=== PATIENT | female | born 1965 | race Two or more races ===

== ENCOUNTER 2023-10-23 10:41 | Emergency (ER) | payer BC ==
[~2023-10-23] VITALS: Ht 152.4 cm; Wt 77.1 kg
[2023-10-23] MEDS ORDERED: MEPERIDINE HCL/PF 50 MG/ML VIAL IM STA (11:48)
[2023-10-23] MEDS ORDERED: PROMETHAZINE HCL 25 MG/ML AMPUL IM STA (11:49)
[2023-10-23] MEDS ORDERED: CIPROFLOXACIN IN 5 % DEXTROSE 400 MG/200 ML PIGGYBAG IV STA (11:49)
[2023-10-23] MEDS ORDERED: METRONIDAZOLE/SODIUM CHLORIDE 500 MG/100 ML PIGGYBACK IV STA (11:50)
[2023-10-23 12:13] LABS: HEMATOCRIT 38.3 % (36.0-45.00); HEMOGLOBIN 13.2 g/dL (12.0-15.00); MEAN CELL VOLUME 82.7 fL (80.00-100.00); MEAN CORPUSCULAR HEMOGLOBIN 28.4 pg (27.00-32.0); MEAN CORPUSCULAR HGB CONC 34.3 g/dl (32.0-36.0); PLATELET COUNT 333 K/uL (150-450); RED BLOOD COUNT 4.64 M/uL (4.00-6.00); RED CELL DISTRIBUTION WIDTH 14.9 % (11.5-14.5)
[2023-10-23 12:38] LABS: CALCIUM 9.5 mg/dL (8.5-10.1); CREATININE SERUM 0.74 mg/dL (0.55-1.02); GFR 80.33; POTASSIUM 3.94 mEq/L (3.5-5.1)
[2023-10-23 13:33] LABS: URINE APPEARANCE Clear; URINE BILIRRUBIN Negative (NEGATIVE); URINE BLOOD Small; URINE COLOR Yellow; URINE GLUCOSE Negative (NEGATIVE); URINE LEUKOCYTE Negative; URINE NITRATE Negative; URINE PROTEIN Negative (NEGATIVE); URINE UROBILINOGEN 0.2 E.U./dl
[2023-10-23 13:36] LABS: URINE BACTERIA 166.2 uL (0.0-1933); URINE EPITHELIAL CELLS 21.9 uL (0.0-38.8)
[2023-10-23 13:38] LABS: URINE WBC 1.3 uL (0.0-23.2)
== END 2023-10-23 17:35 | disposition home or self-care (01) ==
LOC: ER 10:42
PROVIDERS: General Practice
DX: K57.30 Diverticulosis of large intestine without perforation or abscess without bleeding (principal); Q63.2 Ectopic kidney; N28.1 Cyst of kidney, acquired; K46.9 Unspecified abdominal hernia without obstruction or gangrene; Z88.8 Allergy status to other drugs, medicaments and biological substances